=== PATIENT | male | born 1970 | race Caucasian/White ===

== ENCOUNTER 2018-08-11 22:07 | Inpatient (IN) | payer SELFPAY ==
[~2018-08-11] VITALS: Ht 172.7 cm; Wt 72.0 kg
[2018-08-12] MEDS ORDERED: HALOPERIDOL 5 MG TABLET PO PRN (00:15)
[2018-08-12] MEDS ORDERED: ZOLPIDEM TARTRATE 10 MG TABLET PO PRN (00:15)
[2018-08-12] MEDS ORDERED: LORazepam 2 MG TABLET PO PRN (00:15)
[2018-08-12] MEDS ORDERED: LORazepam 2 MG/ML VIAL IM ONE (00:45)
[2018-08-12] MEDS ORDERED: DiphenhydrAMINE HCL 50 MG/ML VIAL IM ONE (00:45)
[2018-08-12] MEDS ORDERED: HALOPERIDOL LACTATE 5 MG/ML VIAL IM ONE (00:45)
[2018-08-12 02:03] LABS: BASOPHILS % (AUTO) 0.5 % (0.0-2.0); EOSINOPHILS % (AUTO) 0.3 % (1.0-6.0); HEMATOCRIT 44.1 % (41-53); HEMOGLOBIN 15.1 g/dL (13.5-17.5); LYMPHOCYTES # (AUTO) 0.6 K/uL (1.0-4.8); LYMPHOCYTES % (AUTO) 8.8 % (22.0-44.0); MEAN CORPUSCULAR HEMOGLOBIN 31.1 pg (26.0-34.0); MEAN CORPUSCULAR HGB CONC 34.2 G/dL (31.0-37.0); MEAN CORPUSCULAR VOLUME 91 fL (80-100); MONOCYTES # (AUTO) 0.5 K/uL (0.1-1.0); MONOCYTES % (AUTO) 6.3 % (2.0-9.0); NEUTROPHILS # (AUTO) 6.1 K/uL (1.8-7.7); NEUTROPHILS % (AUTO) 84.1 % (40.0-70.0); PLATELET COUNT (AUTO) 274 K/uL (150-450); RED BLOOD CELL COUNT(AUTO) 4.85 MIL/uL (4.50-5.90); RED CELL DISTRIBUTION WIDTH 13.6 % (11.5-14.5)
[2018-08-12 02:12] LABS: ANION GAP 10 mmol/L (8-16); CARBON DIOXIDE 27 mmol/L (22-29); CHLORIDE 101 mmol/L (98-107); CREATININE 1.25 mg/dL (0.60-1.30); GLOMERULAR FILTR. RATE CALC > 60 mL/min (>60); GLUCOSE,RANDOM 126 mg/dL (70-110); POTASSIUM 3.8 mmol/L (3.5-5.1); SODIUM SERUM 138 mmol/L (136-145); UREA NITROGEN, BLOOD 15 mg/dL (7-18)
[2018-08-12 02:19] LABS: ALANINE AMINOTRANSFERASE 27 U/L (12-78); ALBUMIN 4.1 g/dL (3.4-5.0); ALKALINE PHOSPHATASE 84 U/L (46-116); ASPARTATE AMINOTRANSFERASE 16 U/L (15-37); BILIRUBIN,TOTAL 0.5 mg/dL (0.1-1.0); TOTAL PROTEIN, SERUM 7.7 g/dL (6.4-8.2)
[2018-08-12 02:39] LABS: HEMOGLOBIN A1C 5.4 % (4.5-6.2)
[2018-08-12 02:51] LABS: CHOL/HDL RATIO 5.3 (4.2-7.3); CHOLESTEROL 219 mg/dL (131-200); FREE T4 (FREE THYROXINE) 1.07 ng/dL (0.76-1.46); HDL CHOLESTEROL 41 mg/dL (40-60); LDL CHOL (CALC.) 150 mg/dL (0-130); THYROID STIMULATING HORMONE 2.74 uIU/mL (0.36-3.74); TRIGLYCERIDES 142 mg/dL (15-150)
[2018-08-12 03:12] VITALS: BP 114/71
[2018-08-12 08:05] VITALS: BP 109/83
[2018-08-12] MEDS ORDERED: HydrOXYzine PAMOATE 50 MG CAPSULE PO PRN (13:30)
[2018-08-12] MEDS ORDERED: TUBERCULIN, PURIFIED PROTEIN DERIVATIVE 5 TU/0.1 ML SYG ID ONE (13:30)
[2018-08-12] MEDS ORDERED: GuaiFENesin/D-METHORPHAN [SUGAR-FREE] 200-20MG/10 ML SYRUP UDCUP PO PRN (13:30)
[2018-08-12] MEDS ORDERED: ACETAMINOPHEN 325 MG TABLET PO PRN (13:30)
[2018-08-12] MEDS ORDERED: PROMETHAZINE HCL 25 MG TABLET PO PRN (13:30)
[2018-08-12] MEDS ORDERED: MAGNESIUM HYDROXIDE SUSPENSION 30 ML UDCUP PO PRN (13:30)
[2018-08-12] MEDS ORDERED: LOPERAMIDE HCL 2 MG CAPSULE PO PRN (13:30)
[2018-08-12] MEDS ORDERED: MAG HYDROX/AL HYDROX/SIMETH ES 30 ML SUSPENSION UDCUP PO PRN (13:30)
[2018-08-12] MEDS ORDERED: OLANZapine 5 MG RAPDIS TABLET PO PRN (13:30)
[2018-08-12 16:25] VITALS: BP 106/75
[2018-08-12] MEDS: THIAMINE HCL 100 MG TABLET PO SCH (17:07)
[2018-08-12] MEDS ORDERED: PETROLATUM,WHITE 71 GM JELLY TP PRN (18:30)
[2018-08-12] MEDS ORDERED: BENZOCAINE/MENTHOL LOZENGE MM PRN (18:30)
[2018-08-12] MEDS ORDERED: ALBUTEROL SULFATE HFA 90 MCG/PUFF 8 GM INHALER IH PRN (18:30)
[2018-08-12] MEDS ORDERED: CloNIDine HCL 0.1 MG TABLET PO PRN (18:30)
[2018-08-12] MEDS ORDERED: DOCUSATE SODIUM 100 MG CAPSULE PO PRN (18:30)
[2018-08-12] MEDS ORDERED: BACITRACIN 28.4 GM OINTMENT TP PRN (18:30)
[2018-08-12] MEDS ORDERED: OMEPRAZOLE 20 MG CAPSULE PO PRN (18:30)
[2018-08-12] MEDS ORDERED: ONDANSETRON HCL 4 MG TABLET PO PRN (18:30)
[2018-08-12] MEDS ORDERED: IBUPROFEN 600 MG TABLET PO PRN (18:30)
[2018-08-12] MEDS: DIVALPROEX SODIUM 500 MG ER TABLET PO SCH ×2 (21:00→21:37)
[2018-08-12] MEDS: OLANZapine 5 MG RAPDIS TABLET PO SCH ×2 (21:00→21:37)
[2018-08-13 08:00] VITALS: BP 131/95
[2018-08-13] MEDS: FOLIC ACID 1 MG TABLET PO SCH (09:04)
[2018-08-13] MEDS: THIAMINE HCL 100 MG TABLET PO SCH ×2 (09:04→17:14)
[2018-08-13] MEDS: MULTIVITAMINS WITH MINERALS, THERAPEUTIC TABLET PO SCH (09:05)
[2018-08-13] MEDS: NALTREXONE HCL 50 MG TABLET PO SCH (09:05)
[2018-08-13] MEDS ORDERED: NALT50TA PO (12:31)
[2018-08-13] MEDS ORDERED: OLAN5TAB30 PO (12:31)
[2018-08-13] MEDS ORDERED: DIVA500T52 PO (12:31)
[2018-08-13 16:00] VITALS: BP 104/68
[2018-08-13] MEDS: DIVALPROEX SODIUM 500 MG ER TABLET PO SCH (20:42)
[2018-08-13] MEDS: OLANZapine 5 MG RAPDIS TABLET PO SCH (20:42)
[2018-08-14 08:00] VITALS: BP 116/42
[2018-08-14] MEDS: MULTIVITAMINS WITH MINERALS, THERAPEUTIC TABLET PO SCH (09:00)
[2018-08-14] MEDS: NALTREXONE HCL 50 MG TABLET PO SCH (09:00)
[2018-08-14] MEDS: THIAMINE HCL 100 MG TABLET PO SCH (09:00)
[2018-08-14] MEDS: FOLIC ACID 1 MG TABLET PO SCH (09:00)
== END 2018-08-14 11:00 | disposition home or self-care (01) | DRG 885 ==
LOC: EMS 22:08 → 3EC 08-12 00:32
PROVIDERS: ADMIT Psychiatry & Neurology Psychiatry; ATTEND Psychiatry & Neurology Psychiatry
DX: F20.9 Schizophrenia, unspecified (principal); E78.00 Pure hypercholesterolemia, unspecified; F41.9 Anxiety disorder, unspecified; G47.00 Insomnia, unspecified; K59.00 Constipation, unspecified; Z91.19 Patient's noncompliance with other medical treatment and regimen; R73.9 Hyperglycemia, unspecified
CPT/HCPCS: 83036; 84439; 84443; 96372; G0480; J1200; J1630; J2060